=== PATIENT | female | born 1990 | race Two or more races ===

== ENCOUNTER 2021-01-16 04:28 | Observation (INO) | payer MEDICAID, OTHER ==
[~2021-01-16] VITALS: Ht 149.9 cm; Wt 69.4 kg
[2021-01-16 05:19] LABS: Urine Bacteria FEW /hpf (None Seen); Urine Blood Negative /uL (Negative); Urine Specific Gravity 1.006 (1.001-1.035); Urine WBC 17 /hpf (0 - 5)
[2021-01-16 05:24] LABS: Amphetamine Screen, Urine NEGATIVE (NEGATIVE); Barbiturate Scree,Urine NEGATIVE (NEGATIVE); Benzodiazephine Screen, Urine NEGATIVE (NEGATIVE); Cannabinoid Screen, Urine NEGATIVE (NEGATIVE); Cocaine Screen, Urine NEGATIVE (NEGATIVE); Opiate Scree,Urine NEGATIVE (NEGATIVE); Phencyclidine Screen, Urine NEGATIVE (NEGATIVE)
[2021-01-16 05:25] LABS: Alcohol, Urine < 3.0 mg/dL (0-10)
== END 2021-01-16 08:38 | disposition home or self-care (01) ==
LOC: LDRP 04:28 → EDBD 04:28
PROVIDERS: ADMIT Obstetrics & Gynecology; ATTEND Obstetrics & Gynecology
DX: O26.893 Other specified pregnancy related conditions, third trimester (principal); R10.32 Left lower quadrant pain; Z3A.36 36 weeks gestation of pregnancy; Z79.899 Other long term (current) drug therapy
CPT/HCPCS: 59025; 76818; 80307; 81001; 81002; 87210; 94760; G0378; G0379

== ENCOUNTER 2021-02-08 07:11 | Observation (INO) | payer MEDICAID ==
[2021-02-08] MEDS ORDERED: PREN-96 PO (15:46)
== END 2021-02-08 16:03 | disposition home or self-care (01) ==
LOC: LDRP 13:08
PROVIDERS: ADMIT Obstetrics & Gynecology; ATTEND Obstetrics & Gynecology
DX: O48.0 Post-term pregnancy (principal); Z3A.40 40 weeks gestation of pregnancy
CPT/HCPCS: 59025; 76818; 81002; 94760; G0378

== ENCOUNTER 2021-02-09 15:31 | Observation (INO) | payer MEDICAID ==
[~2021-02-09] VITALS: Ht 147.3 cm; Wt 72.1 kg
[~2021-02-09 15:31] MED LIST: PREN-96 PO
[2021-02-09] MEDS ORDERED: ACETAMINOPHEN/CODEINE#3 (300/30mg) TAB PO ONE (18:45)
== END 2021-02-09 19:20 | disposition home or self-care (01) ==
LOC: LDRP 15:31
PROVIDERS: ADMIT Obstetrics & Gynecology; ATTEND Obstetrics & Gynecology
DX: O62.9 Abnormality of forces of labor, unspecified (principal); Z3A.40 40 weeks gestation of pregnancy; Z87.891 Personal history of nicotine dependence
CPT/HCPCS: 59025; 81002; 94760; G0378

== ENCOUNTER 2021-02-10 02:57 | Inpatient (IN) | payer MEDICAID ==
[~2021-02-10] VITALS: Ht 149.9 cm; Wt 72.1 kg
[2021-02-10] MEDS ORDERED: LACTATED RINGER'S 1,000 ML IV SCH (04:00)
[2021-02-10] MEDS ORDERED: LIDOCAINE 2%HCL (LOCAL ANESTH.) INJ 20ML MDV IJ PRN (04:00)
[2021-02-10] MEDS ORDERED: PROMETHAZINE HCL 25 MG/ML 1ML IV PRN (04:00)
[2021-02-10] MEDS ORDERED: PENICILLIN G POT 5MIL/D5 50ML 50 ML IV ONE (04:00)
[2021-02-10] MEDS ORDERED: PHISODERM TOP SOLN 240ML BTL TOP PRN (04:00)
[2021-02-10] MEDS ORDERED: BUTORPHANOL TARTRATE 2 MG/1 ML VIAL IV PRN ×2 (04:00)
[2021-02-10 04:23] LABS: Basophils # (auto) 0.1 10 ^3/uL (0-0.2); Basophils % (auto) 0.5 % (0.0-2.0); Eosinophils # (auto) 0.2 10 ^3/uL (0-0.8); Eosinophils % (auto) 1.4 % (0.0-7.0); Hemoglobin 11.9 g/dL (12.2-16.2); Lymphocytes # (auto) 2.1 10 ^3/uL (0.4-5.4); Lymphocytes % (auto) 16.7 % (10.0-50.0); Mean Corpuscular Hemoglobin 28.9 pg (28.0-32.0); Mean Corpuscular Hgb Conc. 33.9 g/dL (32.0-36.0); Mean Corpuscular Volume 85.2 fL (80.0-100.0); Monocytes # (auto) 0.8 10 ^3/uL (0-1.3); Neutrophils # (auto) 9.5 10 ^3/uL (1.6-8.6); Neutrophils % (auto) 75.4 % (37.0-80.0); Nucleated Red Blood Cells % 0.1 %; Red Cell Distribution Width 17.6 % (11.8-14.3); White Blood Cell 12.6 10^3/uL (4.4-10.8)
[2021-02-10 04:44] LABS: Calcium 8.4 mg/dL (8.5-10.1); Potassium 3.6 mmol/L (3.5-5.1)
[2021-02-10 04:50] LABS: Albumin 2.3 g/dL (3.4-5.0); BUN/Creatinine Ratio 11.5; Bilirubin, Total 0.4 mg/dL (0.2-1.0); Total Protein 6.2 g/dL (6.4-8.2); Uric Acid 4.6 mg/dL (2.6-6.0)
[2021-02-10 05:34] LABS: INR 0.96 (0.9-1.15); Partial Thromboplastin Time 29.1 sec (23.6-33.0)
[2021-02-10] MEDS ORDERED: ROPIVACAINE HCL 200 ML EPI SCH ×2 (06:00→06:15)
[2021-02-10] MEDS ORDERED: NALOXONE HCL 0.4 MG/ML VIAL IV ONE (06:00)
[2021-02-10] MEDS ORDERED: ePHEDrine SULFATE 50 MG/ML AMP IV ONE (06:00)
[2021-02-10] MEDS: PENICILLIN G POTASSIUM 2,500,000 UNITS in D5W 5% 50 ML IV SCH ×2 (08:21→13:16)
[2021-02-10] MEDS: DERMOPLAST 60ML BOTTLE TOP PRN (08:27)
[2021-02-10] MEDS: WITCH HAZEL-GLYCERIN PAD TOP PRN (08:27)
[2021-02-10 08:53] LABS: Urine Bacteria FEW /hpf (None Seen); Urine Blood 3+ /uL (Negative); Urine WBC 50 /hpf (0 - 5)
[2021-02-10 09:06] LABS: Alcohol, Urine < 3.0 mg/dL (0-10); Amphetamine Screen, Urine NEGATIVE (NEGATIVE); Barbiturate Scree,Urine NEGATIVE (NEGATIVE); Benzodiazephine Screen, Urine NEGATIVE (NEGATIVE); Cannabinoid Screen, Urine NEGATIVE (NEGATIVE); Cocaine Screen, Urine NEGATIVE (NEGATIVE); Opiate Scree,Urine POSITIVE (NEGATIVE); Phencyclidine Screen, Urine NEGATIVE (NEGATIVE)
[2021-02-10] MEDS ORDERED: LACT. RINGERS/OXYTOCIN 20UNITS 500 ML IV ONE ×2 (09:15→09:45)
[2021-02-10] MEDS ORDERED: TERBUTALINE SULFATE 1 MG/ML 1ML VIAL SC PRN (09:15)
[2021-02-10] MEDS ORDERED: LACT. RINGERS/OXYTOCIN 20UNITS 1,000 ML IV SCH (09:15)
[2021-02-10] MEDS ORDERED: ONDANSETRON ODT 4 MG TAB PO PRN (15:00)
[2021-02-10 16:36] VITALS: BP 117/58
[2021-02-10] MEDS: IBUPROFEN 800 MG TAB PO PRN (16:48)
[2021-02-10 19:25] VITALS: BP 96/50
[2021-02-10] MEDS: ACETAMINOPHEN 325 MG TAB PO PRN (20:56)
[2021-02-10] MEDS ORDERED: DOCUSATE SOD 100 MG CAP PO SCH (22:00)
[2021-02-10 23:20] VITALS: BP 94/55
[2021-02-11 03:15] VITALS: BP 107/62
[2021-02-11] MEDS: IBUPROFEN 800 MG TAB PO PRN (04:22)
[2021-02-11 06:45] VITALS: BP 97/52
[2021-02-11] MEDS: ACETAMINOPHEN 325 MG TAB PO PRN ×2 (07:07→13:33)
[2021-02-11 11:20] VITALS: BP 93/54
[2021-02-11] MEDS ORDERED: MEASLES, MUMPS & RUBELLA VAC(MMRII) 0.5ML SC ONE (13:30)
[2021-02-11 15:05] VITALS: BP 94/58
[2021-02-11] MEDS: DERMOPLAST 60ML BOTTLE TOP PRN (16:07)
[2021-02-11] MEDS: WITCH HAZEL-GLYCERIN PAD TOP PRN (16:07)
[2021-02-11 16:43] VITALS: BP 98/68
[2021-02-12 06:06] LABS: RPR Non Reactive (Non Reactive)
== END 2021-02-11 16:43 | disposition home or self-care (01) | DRG 560 ==
LOC: LDRP 02:57 → OBSVTOIN 03:44
PROVIDERS: ADMIT Obstetrics & Gynecology; ATTEND Obstetrics & Gynecology
PROC: 10D07Z6 Extraction of Products of Conception, Vacuum, Via Natural or Artificial Opening (ICD-10-PCS; principal; 2021-02-10)
PROC: 3E0R3BZ Introduction of Anesthetic Agent into Spinal Canal, Percutaneous Approach (ICD-10-PCS; 2021-02-10)
PROC: 00HU33Z Insertion of Infusion Device into Spinal Canal, Percutaneous Approach (ICD-10-PCS; 2021-02-10)
PROC: 0HQ9XZZ Repair Perineum Skin, External Approach (ICD-10-PCS; 2021-02-10)
DX: O69.81X0 Labor and delivery complicated by cord around neck, without compression, not applicable or unspecified (principal); Z37.0 Single live birth; O48.0 Post-term pregnancy; O70.0 First degree perineal laceration during delivery; Z3A.40 40 weeks gestation of pregnancy; Z20.822 Contact with and (suspected) exposure to COVID-19
CPT/HCPCS: 36415; 59025; 59409; 62282; 80053; 80307; 81001; 81002; 84550; 85025; 85384; 85610; 85730; 86592; 86850; 86900; 86901; 87426; 94760; 96360; 96361; 96365; 96366; 96372; 96374; 96375; G0378; J2540; J2590; J7060